=== PATIENT | female | born 1980 | race Caucasian/White ===

== ENCOUNTER 2016-10-21 17:03 | Outpatient (CLI) | payer BC ==
--- NOTE | 2016-10-22 14:51 | DIAGNOSTIC IMAGING REPORT ---
PROCEDURE: US OB DETAILED ANATOMIC INDICATION: Check dates and anatomy. TECHNIQUE: Woodruff scale, color, and spectral Doppler images of the second trimester gravid uterus were obtained. COMPARISON: None. FINDINGS: There is a viable intrauterine in breech position. Placenta is posterior and there is no evidence of previa. Normal fluid and cervix length (3.5 cm). anatomic survey was performed. Facial structures, lumbar and sacral spine, cardiac outflow tracts, and kidneys are difficult to visualize secondary to position. The rest of the anatomy is within normal limits including brain and ventricles, nuchal region, cervical and thoracic spine, chest diaphragm, four- chamber heart, abdomen, stomach, kidneys, three-vessel cord insertion, pelvis and urinary bladder. Upper and lower extremities are present. BPD 4.2 cm (18.7 weeks), HC 17.3 cm (20.0 weeks), AC 17.7 cm (22.0 weeks), FL 3.4 cm (21.0 weeks). IMPRESSION: 1. Viable intrauterine with composite menstrual age of 20.3 weeks (plus or minus 1.5 weeks). DES is 04/06/2017 (based on today's measurements). 2. head measurements (BPD 18.7 weeks, HC 20.0 weeks) are borderline decreased when compared to other measurements (AC 22.0 weeks, FL 21.0 weeks). As such, consider IUGR or dolichocephaly. 3. Breech position. 4. Partially limited anatomic survey. Facial structures, lumbar and sacral spine, cardiac outflow tracts, and kidneys are not well evaluated due to position. 5. In view the above changes, follow-up limited obstetric ultrasound in 1-2 weeks is recommended to reevaluate measurements and complete anatomic survey. 6. Findings discussed with Dr. Katie Terry.
== END 2016-10-21 23:00 ==
LOC: US SRH 17:03
DX: O36.5920 Maternal care for other known or suspected poor fetal growth, second trimester, not applicable or unspecified (principal); Z3A.20 20 weeks gestation of pregnancy

== ENCOUNTER 2016-11-01 16:57 | Outpatient (CLI) | payer BC ==
--- NOTE | 2016-11-01 21:07 | DIAGNOSTIC IMAGING REPORT ---
PROCEDURE: US OB RE-EVALUATION INDICATION: FOLLOWUP MEASUREMENTS TECHNIQUE: Woodruff scale, color and spectral Doppler images of the gravid uterus. COMPARISON: OB ultrasound 10/21/2016. FINDINGS: Single live intrauterine with variable presentation, posterior placenta without previa. Heart rate 149 bpm. Normal closed cervix measures 4.6 cm. Completion of previous anatomic survey with normal nose, lips, orbits, lumbar and sacral spine, outflow tracts and kidneys which are all grossly normal. The stomach and bladder are also visualized. BPD 4.8 cm, 20 weeks 4 days; head circumference 99.5 cm 121 weeks 5 days; abdominal circumference 17.6 cm, and 22 weeks 4 days; femur length 3.6 cm, and 21 weeks 3 days. Composite age 21 weeks 4 days. DES 03/10/2017 jaquan IMPRESSION: 1. Single live intrauterine 21 weeks 4 days 2. BPD (7%) and head circumference (25 percentile) are decreased relative to abdominal circumference (60th percentile). IUGR is a consideration. 3. Completion of normal anatomic survey.
== END 2016-11-01 23:00 ==
LOC: US SRH 16:57
DX: Z34.82 Encounter for supervision of other normal pregnancy, second trimester (principal); Z3A.21 21 weeks gestation of pregnancy

== ENCOUNTER 2016-12-02 14:34 | Outpatient (CLI) | payer BC | END 2016-12-02 23:00 | LOC: LAB SRH 14:34 | DX: Z34.82 Encounter for supervision of other normal pregnancy, second trimester (principal) | CPT/HCPCS: 90039; 90074; 91162; 91163 ==